=== PATIENT | male | born 1945 | race Caucasian/White ===

== ENCOUNTER 2018-11-03 14:29 | Emergency (ER) | payer OTHER ==
[~2018-11-03] VITALS: Ht 177.8 cm; Wt 74.8 kg
[2018-11-03] MEDS ORDERED: SINGULAIR5 MG PO (14:38)
[2018-11-03] MEDS ORDERED: COZAAR100 MG PO (14:38)
[2018-11-03] MEDS ORDERED: ADVAIR 100-501 EACH IH (14:39)
== END 2018-11-03 21:01 | disposition home or self-care (01) ==
LOC: ER 14:29
DX: S40.012A Contusion of left shoulder, initial encounter (principal); W18.09XA Striking against other object with subsequent fall, initial encounter; Y93.89 Activity, other specified; Y92.89 Other specified places as the place of occurrence of the external cause; Y99.8 Other external cause status